=== PATIENT | male | born 1970 | race Caucasian/White ===

== ENCOUNTER → 2021-07-21 | Outpatient (CLI) | payer BC ==
[~2021-07-21] MED LIST: FAMOTIDINE20 MG PO; LEVOTHYROXINE125 MCG PO; LISINOPRIL-HCT1 EAC2 PO; NORVASC2.5 MG PO; SILDENAFIL20 MG PO; TOPROL XL100 MG PO
[2021-07-21 13:29] LABS: HEMOGLOBIN 16.1 gm/dl (14.0-17.5); RED BLOOD COUNT 5.12 M/UL (4.20-5.50); WHITE BLOOD COUNT 13.1 K/UL (4.5-11.0)
[2021-07-21 13:57] LABS: BUN/CREATININE RATIO 17 (0-10)
== END ==
LOC: EDSTATUS 11:30 → OPSV2 11:30
PROVIDERS: Orthopaedic Surgery
DX: Z01.818 Encounter for other preprocedural examination (principal); M16.11 Unilateral primary osteoarthritis, right hip
CPT/HCPCS: 80048; 83036; 85027; 93005

== ENCOUNTER → 2021-09-20 | Outpatient (CLI) | payer BC ==
[~2021-09-20] MED LIST changes: +IBU800 MG PO; +METOPROLOL SUC100 MG PO; +NORVASC5 MG PO; +PEPCID COMPLET1 EACH PO
[2021-09-20 13:52] LABS: HEMOGLOBIN 16.4 gm/dl (14.0-17.5); RED BLOOD COUNT 5.09 M/UL (4.20-5.50); WHITE BLOOD COUNT 14.1 K/UL (4.5-11.0)
[2021-09-20 14:15] LABS: BUN/CREATININE RATIO 14 (0-10)
== END ==
LOC: OPSV2 12:26 → EDSTATUS 12:30 → OPSV2 12:30
PROVIDERS: Orthopaedic Surgery
DX: Z01.812 Encounter for preprocedural laboratory examination (principal); M16.11 Unilateral primary osteoarthritis, right hip
CPT/HCPCS: 80048; 83036; 85025

== ENCOUNTER → 2021-10-03 | Outpatient (CLI) | payer BC ==
[~2021-10-03] MED LIST changes: +CYCLOBENZAPRINE10 MG PO; +ELIQUIS2.5 MG PO; +ENDOCET 7.5-321 EACH PO; +ZOFRAN 4 MG TAB4 MG PO
== END ==
LOC: LAB 14:02
DX: Z01.812 Encounter for preprocedural laboratory examination (principal)
CPT/HCPCS: 36415; 86850; 86900; 86901

== ENCOUNTER 2021-10-04 05:09 | Day surgery (SDC) | payer BC ==
[~2021-10-04] VITALS: Ht 188 cm; Wt 145.1 kg
[~2021-10-04 05:09] MED LIST changes: -CYCLOBENZAPRINE10 MG PO; -ELIQUIS2.5 MG PO; -ENDOCET 7.5-321 EACH PO; -SILDENAFIL20 MG PO; -TOPROL XL100 MG PO; -ZOFRAN 4 MG TAB4 MG PO
[2021-10-04] MEDS ORDERED: ELIQUIS2.5 MG PO (08:17)
[2021-10-04] MEDS ORDERED: CYCLOBENZAPRINE10 MG PO (08:17)
[2021-10-04] MEDS ORDERED: ENDOCET 7.5-321 EACH PO (08:17)
[2021-10-04] MEDS ORDERED: ZOFRAN 4 MG TAB4 MG PO (08:17)
[2021-10-04] MEDS ORDERED: SILDENAFIL20 MG PO (13:21)
[2021-10-04] MEDS ORDERED: TOPROL XL100 MG PO (13:22)
[2021-10-05 06:38] LABS: HEMOGLOBIN 12.4 gm/dl (14.0-17.5); RED BLOOD COUNT 4.06 M/UL (4.20-5.50); WHITE BLOOD COUNT 12.5 K/UL (4.5-11.0)
[2021-10-05 06:57] LABS: BUN/CREATININE RATIO 21 (0-10)
== END 2021-10-05 12:38 | disposition home or self-care (01) ==
LOC: OR 05:09 → EDSTATUS 11:00 → OR 11:00 → M/S 14:15 → OR 10-05 12:38
PROVIDERS: Orthopaedic Surgery
DX: M16.11 Unilateral primary osteoarthritis, right hip (principal); E66.01 Morbid (severe) obesity due to excess calories; Z68.41 Body mass index [BMI] 40.0-44.9, adult; I10 Essential (primary) hypertension; E11.9 Type 2 diabetes mellitus without complications; E03.9 Hypothyroidism, unspecified; I25.2 Old myocardial infarction; K21.9 Gastro-esophageal reflux disease without esophagitis; Z79.899 Other long term (current) drug therapy
CPT/HCPCS: 36415; 73501; 73502; 76000; 80048; 85027; 93005; 97110; 97116-GP-CQ; 97162; 97166; 97530-GP-CQ; 97535; C1776; J0690; J1170; J1200; J1885; J2250; J2274; J2370; J2704; J2710; J3370; J3475; J7040; J7050; J7120